=== PATIENT | male | born 2000 | race Caucasian/White ===

== ENCOUNTER 2022-06-15 15:09 | Emergency (ER) | payer OTHER, SELFPAY ==
[2022-06-15] MEDS ORDERED: Bacitracin 1 PK ONE (15:44)
[2022-06-15] MEDS ORDERED: Boostrix 0.5 ML (Tdap) VIAL (>/=7 yrs of age) ONE (15:44)
== END 2022-06-15 15:52 | disposition home or self-care (01) ==
LOC: ERS 15:09
DX: T20.27XA Burn of second degree of neck, initial encounter (principal); Z23 Encounter for immunization; X19.XXXA Contact with other heat and hot substances, initial encounter
CPT/HCPCS: 90471; 90715